=== PATIENT | female | born 1965 ===

== ENCOUNTER 2024-07-17 09:27 | Emergency (ER) | payer OTHER, SELFPAY ==
[2024-07-17 09:31] VITALS: BP 172/95
--- NOTE | 2024-07-17 10:02 | ED.GENMED ---
History of Present Illness
General
Chief Complaint: Breathing Problem
Source: patient
Exam Limitations: none
Time Seen by Provider: 07/17/24 09:36
History of Present Illness
History of Present Illness:
59-year-old female complaining of ongoing cough some shortness of breath for over a month. Had a chest x-ray a month ago that was unremarkable. Has been on 2 courses of antibiotics. Finishing azithromycin now. Was on steroids earlier. Also
using an albuterol inhaler. No hemoptysis no chest pain or pleuritic pain. No one else is ill at home. Symptoms are not progressing but they are not improving.
Past History
Past History
ED Past Medical History: Other
ED Past Surgical History: Cholecystectomy and Orthopedic
Social History
Tobacco: Non-smoker
Personal:
Living: with family
Review of Systems
Review of Systems
All Other Systems: Not applicable
Constitutional: Denies fever
Respiratory: Denies hemoptysis
Cardiac: Reports no symptoms
Phy Exam
Physical Exam
Physical Exam:
GENERAL: Alert and oriented in no apparent distress
EYE: Orbits normal.
NECK: Supple
CARDIAC: Regular rate and rhythm without any obvious murmurs.
LUNGS: No respiratory distress. Occasional dry cough. Slightly distant breath sounds with end expiratory wheezing
ABDOMEN: Soft, without focal tenderness or distention
NEUROLOGICAL: Alert and oriented , grossly non-focal
SKIN: Warm and dry, no rash or lesion, no discoloration, skin intact.
MUSCULOSKELETAL: No edema,no deformity.Good color
PSYCH: Normal and appropriate interaction.
Scores
Heart Failure Risk
Heart Failure Risk Score: Not Applicable
Course
Orders/Labs/Results
Orders:
Orders
07/17/24 10:01
IV Insert/Care/Rem.- Treatment PRN
CR Chest - 2 Views Urgent
Comment:
Reason For Exam: Persistent cough
07/17/24 10:17
Basic Metabolic Panel Urgent
COVID-19 Antigen Urgent
Source: Nasal Swab
Complete Blood Count/With Diff Urgent
D-Dimer Urgent
Influenza A+B Rapid Molecular Urgent
LUI Source: Nasal Swab
Specimen Description:
Abnormal Lab Results
07/17/24
10:17
MCHC 32.1 L g/dL
(33.0-37.0)
MPV 10.8 H fL
(7.4-10.4)
Abs Immat Gran (auto) 0.1 H 10^3/uL
(0-0.05)
Absolute Lymphs (auto) 0.8 L 10^3/uL
(1.2-3.4)
Absolute Monos (auto) 0.7 H 10^3/uL
(0.1-0.6)
Absolute Eos (auto) 0.9 H 10^3/uL
(0-0.7)
Immature Gran % 0.6 H %
(0-0.5)
Lymphocytes % 9.8 L %
(20.5-51.1)
Eosinophils % 10.8 H %
(0-6)
Creatinine 0.5 L mg/dL
(0.6-1.0)
Glucose 101 H mg/dl
(70-99)
07/17/24 10:17
07/17/24 10:17
Vital Signs
Initial and Last Documented VS:
Initial Vital Signs
Temp Pulse Resp BP Pulse Ox
98.9 F 88 16 172/95 94
07/17/24 09:31 07/17/24 09:31 07/17/24 09:31 07/17/24 09:31 07/17/24 09:31
Last Documented Vital Signs
Temp Pulse Resp BP Pulse Ox
98.9 F 89 19 155/89 96
07/17/24 09:31 07/17/24 10:32 07/17/24 10:32 07/17/24 10:28 07/17/24 10:32
MDM/Problems Addressed
Differential Diagnosis Includes:
Most suspicious of a postinflammatory persistent bronchitis. Doubt pulmonary emboli but would be considered. D-dimer pending. Chest x-ray pending.
*Radiology
Radiology exam reviewed: radiology read reviewed (Negative)
*Pulse Oximetry
Patient hypoxic: no
*Critical Care Note
Total Time (30-74mins, 75-104mins- exclusive of procedures): Not Applicable
Update Note
Update Note:
Persistent bronchitis with some inflammatory expiratory wheezing. Feel another course of antibiotics is not warranted. Nothing to support a bacterial infection. Very low suspicion for PE with negative D-dimer. In no respiratory distress. Oral
steroids inhaled steroids and follow-up
ED Attending Note
-
Portions of this chart may have been created with voice recognition software.� Occasional wrong word or��sound alike� substitutions may have occurred due to the inherent limitations of voice recognition software.
Discharge Plan
Departure
Patient Disposition: Home (Routine Discharge)
Date of Disposition: 07/17/24
Time of Disposition: 12:10
Patient with high blood pressure during this ER visit?: Yes
Discharge Problem:
Persistent bronchitis
Instructions: Bronchitis in adults - ED discharge instructions, BLOOD PRESSURE
Prescriptions:
New
fluticasone propionate 110 mcg/actuation HFA aerosol inhaler
1 inh inhalation BID Qty: 12 0RF
prednisone 10 mg tablet
10 mg feeding tube DAILY Qty: 30 0RF
Rx Instructions:
4 tablets day 1. Then 1 less tablet every third day until gone
Referrals:
Rajan Galvez DO [Family Provider] - Follow up in 2-3 days
Sandro Michael MD [Active] - Next open appointment
Activity Restrictions/Additional Instructions:
I recommend following up with pulmonary at this point
Your prescriptions were sent to your pharmacy
Interventions
Interventions:
*Risk Screen - Suicide Last Done: 07/17/24 09:34
*Neglect/Abuse Screening Last Done: 07/17/24 09:34
ED- Fall Risk Assessment Last Done: 07/17/24 10:28
*ED COVID-19 Vaccine History Last Done: 07/17/24 09:34
Discharge Date and Time
Print Language: SENEGALESE
[2024-07-17 10:28] VITALS: BP 155/89; BMI 31.2
[2024-07-17 10:33] LABS: % Basophils 1.7 % (0-2); % Eosinophils 10.8 % (0-6); % Immature Granulocytes 0.6 % (0-0.5); % Lymphocytes 9.8 % (20.5-51.1); % Monocytes 8.4 % (1.7-9.3); % Neutrophils 68.7 % (42.2-75.2); Absolute Basophils 0.1 10^3/uL (0-0.2); Absolute Eosinophils 0.9 10^3/uL (0-0.7); Absolute Immature Granulocytes 0.1 10^3/uL (0-0.05); Absolute Lymphocytes 0.8 10^3/uL (1.2-3.4); Absolute Monocytes 0.7 10^3/uL (0.1-0.6); Absolute Neutrophils 5.5 10^3/uL (1.4-6.5); Hemoglobin 13.8 g/dL (12.0-16.0); Mean Corp Hgb Conc. 32.1 g/dL (33.0-37.0); Mean Corpuscular Hgb 28.5 pg (27.0-31.0); Mean Corpuscular Volume 88.8 fL (81.0-99.0); Mean Platelet Volume 10.8 fL (7.4-10.4); Nucleated Red Blood Cells % 0 %; Platelet Count 269 10^3/uL (130-400); Red Blood Cell Count 4.84 10^6/uL (4.20-5.40); Red Cell Dist. Width 14.1 % (11.5-14.5); White Blood Cell Count 8.1 10^3/uL (4.8-10.8)
[2024-07-17 10:44] LABS: Blood Urea Nitrogen 10 mg/dl (7-17); Calcium 9.5 mg/dl (8.4-10.2); Carbon Dioxide 29 mmol/L (22-30); Chloride 107 mmol/L (98-107); Estimated Creatinine Clearance 112 ml/min; Glucose 101 mg/dl (70-99); Potassium 3.7 mmol/L (3.5-5.1); Sodium 140 mmol/L (135-145); eGFR > 60.00
[2024-07-17 10:50] LABS: COVID-19 Antigen Negative (Negative)
[2024-07-17 10:58] LABS: D-Dimer < 0.27 ug/mlFEU (0.00-0.50)
[2024-07-17 11:01] VITALS: BP 160/90
[2024-07-17 12:00] VITALS: BP 175/89
== END 2024-07-17 12:45 | disposition home or self-care (01) ==
LOC: EMR 09:27
PROVIDERS: EMERGENCY PHYSICIAN Emergency Medicine; FAMILY PHYSICIAN Internal Medicine
DX: J40 Bronchitis, not specified as acute or chronic (principal); Z11.52 Encounter for screening for COVID-19; Z90.49 Acquired absence of other specified parts of digestive tract
CPT/HCPCS: 99284; 71046; 80048; 85025; 85379; 87502; 87811

== ENCOUNTER 2024-08-07 21:35 | Emergency (ER) | payer OTHER, SELFPAY ==
[2024-08-07 21:50] VITALS: BP 154/84
[2024-08-07] MEDS: DELTASONE 50 MG PO (22:34)
--- NOTE | 2024-08-07 23:00 | ED.GENMED ---
History of Present Illness
General
Chief Complaint: Skin Problem
Source: patient and spouse
Time Seen by Provider: 08/07/24 22:14
History of Present Illness
History of Present Illness:
59-year-old female presents with itching hands. The patient states that she awoke this morning and her hands were itchy. She took Benadryl which made her go to sleep and she was able to sleep. Subsequently however she states she woke up and her
hands were itchy all over again. She states she has sort of random other spots where she itches but for the most part just her hands. She denies a rash however. No intraoral lesions. No lip lesions. No redness. No bumps. No vesicles. Patient
does admit she is finishing Bactrim for a foot ulcer that is being closely monitored. Patient's states that they did just picked her 2 dogs up from the groomer prior to this starting.
Past History
Past History
ED Past Medical History: Other (Multiple sclerosis, foot ulcer)
ED Past Surgical History: Cholecystectomy and Orthopedic
Social History
Tobacco: Non-smoker
Personal:
Living: with family
Phy Exam
Physical Exam
Physical Exam:
CONSTITUTIONAL Vital signs reviewed, Patient alert and oriented to person, place and time. Well-appearing
HEAD atraumatic, normocephalic.
EYES eyelids normal to inspection, Extraocular muscles intact, Conjunctiva normal, Sclera normal.
NECK normal range of motion, Trachea midline, no jugular venous distention.
RESP no respiratory distress
BACK No obvious deformities
UPPER EXTREMITY Gross Range of motion normal, gross motor strength normal
LOWER EXTREMITY Gross range of motion normal, Gross motor strength normal. Also evaluated a left plantar surface below the MTP joint that is well-demarcated and not red in any way. It is shallow without drainage. Appears to be healing
appropriately
NEURO Speech normal, No focal motor deficits include, Manuel coma scale 15, Memory normal, Cranial Nerves intact to screening exam.
SKIN Skin warm, dry, and normal in color. No noted rash. No vesicles. No papules. No redness. Hands normal. No intraoral lesions. Lips normal
PSYCHIATRIC Patient oriented to person place and time, Normal affect.
Course
Orders/Labs/Results
Orders:
Orders
08/07/24 22:30
Prednisone [Deltasone] 50 mg PO NOW STA
Vital Signs
Initial and Last Documented VS:
Initial Vital Signs
Temp Pulse Resp BP Pulse Ox
98.7 F 70 18 154/84 94
08/07/24 21:50 08/07/24 21:50 08/07/24 21:50 08/07/24 21:50 08/07/24 21:50
Last Documented Vital Signs
Temp Pulse Resp BP Pulse Ox
98.7 F 70 18 154/84 94
08/07/24 21:50 08/07/24 21:50 08/07/24 21:50 08/07/24 21:50 08/07/24 21:50
MDM/Problems Addressed
Differential Diagnosis Includes:
Villarreal-Juan Carlos syndrome, drug rash, contact dermatitis, viral rash
MDM/Problems Addressed:
Chronic foot ulcer, suspected contact dermatitis
*Pulse Oximetry
Patient hypoxic: no
*Critical Care Note
Total Time (30-74mins, 75-104mins- exclusive of procedures): Not Applicable
Data Reviewed
Source: patient and family
Prescriptions/Medications Considered But Not Given:
Considered IV steroids but oral steroids will suffice as there is no rash
Patient Management
Escalation/DeEscalation of care consider admission/obs:
Will give one-time dose of steroids for symptom control. Continue antihistamines. I wonder whether this is related to something that was put on the dogs at the [facility] given the fact that it started shortly after that and is mostly on her hands.
The patient otherwise appears well. Also considered whether this could be a reaction to Bactrim but there is no oral lesions and there is no drug rash. In fact there is no rash at all. Recommended antihistamines and also recommended that they
rinse off the dogs
ED Attending Note
-
Portions of this chart may have been created with voice recognition software.� Occasional wrong word or��sound alike� substitutions may have occurred due to the inherent limitations of voice recognition software.
Discharge Plan
Departure
Patient Disposition: Home (Routine Discharge)
Date of Disposition: 08/07/24
Time of Disposition: 23:03
Patient with high blood pressure during this ER visit?: Yes
Discharge Problem:
Suspected contact dermatitis, Chronic foot ulcer
Instructions: Contact dermatitis, Wound Care (DC), BLOOD PRESSURE
Prescriptions:
No Action
fluticasone propionate 110 mcg/actuation HFA aerosol inhaler
1 inh inhalation BID Qty: 12 0RF
prednisone 10 mg tablet
10 mg feeding tube DAILY Qty: 30 0RF
Rx Instructions:
4 tablets day 1. Then 1 less tablet every third day until gone
Activity Restrictions/Additional Instructions:
Return immediately for rash of any kind, ulcerations in the mouth, blistering of the lips, blistering of the skin, swelling of the tongue or lips, shortness of breath or any other concerns. If you do develop any of the symptoms, please stop your
antibiotic immediately. See your doctor in the next 3 to 5 days if any symptoms persist.
Interventions
Interventions:
*Risk Screen - Suicide Last Done: 08/07/24 21:50
*Neglect/Abuse Screening Last Done: 08/07/24 21:50
ED-Skin Assessment Last Done: 08/07/24 22:52
Discharge Date and Time
Print Language: UPPER SORBIAN
== END 2024-08-07 23:21 | disposition home or self-care (01) ==
LOC: EMR 21:35
PROVIDERS: EMERGENCY PHYSICIAN Emergency Medicine; FAMILY PHYSICIAN Internal Medicine
DX: L29.9 Pruritus, unspecified (principal); L97.509 Non-pressure chronic ulcer of other part of unspecified foot with unspecified severity; G35 Multiple sclerosis; Z90.49 Acquired absence of other specified parts of digestive tract
CPT/HCPCS: 99282

== ENCOUNTER 2024-09-13 12:01 | Emergency (ER) | payer OTHER, SELFPAY ==
[2024-09-13 12:10] VITALS: BP 144/87
[2024-09-13 12:39] LABS: % Basophils 0.3 % (0-2); % Eosinophils 0.1 % (0-6); % Immature Granulocytes 0.5 % (0-0.5); % Monocytes 5.9 % (1.7-9.3); % Neutrophils 88.2 % (42.2-75.2); Absolute Immature Granulocytes 0.1 10^3/uL (0-0.05); Absolute Lymphocytes 0.6 10^3/uL (1.2-3.4); Absolute Monocytes 0.7 10^3/uL (0.1-0.6); Absolute Neutrophils 10.4 10^3/uL (1.4-6.5); Hematocrit 41.8 % (37.0-47.0); Hemoglobin 13.8 g/dL (12.0-16.0); Mean Corpuscular Hgb 28.7 pg (27.0-31.0); Mean Corpuscular Volume 86.9 fL (81.0-99.0); Mean Platelet Volume 11.1 fL (7.4-10.4); Nucleated Red Blood Cells % 0 %; Platelet Count 277 10^3/uL (130-400); Red Blood Cell Count 4.81 10^6/uL (4.20-5.40); Red Cell Dist. Width 13.9 % (11.5-14.5); White Blood Cell Count 11.8 10^3/uL (4.8-10.8)
[2024-09-13 12:51] LABS: ALT (SGPT) 20 U/L (0-35); AST (SGOT) 19 U/L (14-36); Alkaline Phosphatase 85 U/L (38-126); Blood Urea Nitrogen 12 mg/dl (7-17); Calcium 9.9 mg/dl (8.4-10.2); Carbon Dioxide 25 mmol/L (22-30); Chloride 105 mmol/L (98-107); Glucose 122 mg/dl (70-99); Potassium 4.1 mmol/L (3.5-5.1); Sodium 138 mmol/L (135-145); Total Bilirubin 0.7 mg/dl (0.2-1.3); Total Protein 6.5 g/dl (6.3-8.2); eGFR > 60.00
[2024-09-13 13:13] LABS: COVID-19 Antigen Negative (Negative)
--- NOTE | 2024-09-13 14:34 | ED.GENMED ---
History of Present Illness
General
Chief Complaint: Cough
Source: patient
Time Seen by Provider: 09/13/24 14:15
History of Present Illness
History of Present Illness:
59-year-old female presents to the emergency room complaining of persistent cough and now has pain on the right side of his chest with coughing. No short of breath. No fever or chills. Patient was recently seen by her director of group counseling program and she was
started on albuterol MDI as well as a taper of steroids. She feels that her cough is less prominent since starting the meds but she does have pain when she coughs. She does not feel particularly short of breath. Her activity is not limited by
shortness of breath though she feels like she is walking more slowly because of the pain in her chest.
Past History
Past History
ED Past Medical History: Other (Multiple sclerosis, foot ulcer)
ED Past Surgical History: Cholecystectomy and Orthopedic
Social History
Tobacco: Non-smoker
Personal:
Living: with family
Phy Exam
Physical Exam
Physical Exam:
General: Awake, Alert, Oriented X3. No acute distress.
Vitals: unremarkable
Head: Atraumatic
Eyes: Pupils equal, EOMI
Throat: Airway intact, no exudates
Neck: Trachea midline
Lungs: Few expiratory wheezes
Heart: Regular rate, no murmurs
Abd: Soft, Nontender, No pulsatile mass
Neuro: Nonfocal
Skin: Warm, dry, no rash
Extremities: pulses equal b/l, no edema
Course
Orders/Labs/Results
Orders:
Orders
09/13/24 12:13
CR Chest - 2 Views Urgent
Comment:
Reason For Exam: sob, cough
09/13/24 12:23
COVID-19 Antigen Urgent
Source: Nasal Swab
Complete Blood Count/With Diff Urgent
Comprehensive Metabolic Panel Urgent
NT-proBNP Urgent
Comment: ADD ON
Influenza A+B Rapid Molecular Urgent
LUI Source: Nasal Swab
Specimen Description:
09/13/24 14:32
Ibuprofen [Motrin] 400 mg PO NOW STA
09/13/24 15:29
Add On- LAB Urgent
Tests Added?: bnp
Abnormal Lab Results
09/13/24
12:23
WBC 11.8 H 10^3/uL
(4.8-10.8)
MPV 11.1 H fL
(7.4-10.4)
Abs Immat Gran (auto) 0.1 H 10^3/uL
(0-0.05)
Absolute Neuts (auto) 10.4 H 10^3/uL
(1.4-6.5)
Absolute Lymphs (auto) 0.6 L 10^3/uL
(1.2-3.4)
Absolute Monos (auto) 0.7 H 10^3/uL
(0.1-0.6)
Neutrophils % 88.2 H %
(42.2-75.2)
Lymphocytes % 5.0 L %
(20.5-51.1)
Creatinine 0.5 L mg/dL
(0.6-1.0)
Glucose 122 H mg/dl
(70-99)
09/13/24 12:23
09/13/24 12:23
Vital Signs
Initial and Last Documented VS:
Initial Vital Signs
Temp Pulse Resp BP Pulse Ox
99.4 F 78 18 144/87 95
09/13/24 12:10 09/13/24 12:10 09/13/24 12:10 09/13/24 12:10 09/13/24 12:10
Last Documented Vital Signs
Temp Pulse Resp BP Pulse Ox
98.5 F 86 20 143/81 96
09/13/24 15:29 09/13/24 15:29 09/13/24 15:29 09/13/24 15:29 09/13/24 15:29
MDM/Problems Addressed
Differential Diagnosis Includes:
Pneumonia, chest wall pain from coughing, spontaneous pneumothorax
MDM/Problems Addressed:
Patient presents with a chronic cough and right-sided chest pain. Vital signs are normal here. She is afebrile. Workup shows a minimally elevated white blood cell count. Patient is on steroids of note. Chemistries are essentially unremarkable.
Chest x-ray shows small bilateral pleural effusions. COVID and flu test are negative. Patient will require additional testing to identify the source of her pleural effusions. Her BNP here is normal and clinically she does not appear to be in
heart failure. Also given her contact information to follow-up with cardiology. I did discuss the patient's abnormal chest x-ray with Dr. Michael who is on-call for pulmonary.
*Radiology
Radiology exam reviewed: radiology read reviewed
*Pulse Oximetry
Patient hypoxic: no
*Critical Care Note
Total Time (30-74mins, 75-104mins- exclusive of procedures): Not Applicable
ED Attending Note
-
Portions of this chart may have been created with voice recognition software.� Occasional wrong word or��sound alike� substitutions may have occurred due to the inherent limitations of voice recognition software.
Discharge Plan
Departure
Patient Disposition: Home (Routine Discharge)
Date of Disposition: 09/13/24
Time of Disposition: 17:16
Patient with high blood pressure during this ER visit?: Yes
Condition: Good
Discharge Problem:
Chest wall pain, Pleural effusion, bilateral
Instructions: Pleural effusion, BLOOD PRESSURE
Prescriptions:
No Action
fluticasone propionate 110 mcg/actuation HFA aerosol inhaler
1 inh inhalation BID Qty: 12 0RF
prednisone 10 mg tablet
10 mg feeding tube DAILY Qty: 30 0RF
Rx Instructions:
4 tablets day 1. Then 1 less tablet every third day until gone
Referrals:
Rajan Galvez, [Family Provider] -
Chilango Maciel MD [Active] -
Interventions
Interventions:
*Risk Screen - Suicide Last Done: 09/13/24 12:13
*General Assessment Last Done: 09/13/24 12:13
*Neglect/Abuse Screening Last Done: 09/13/24 12:13
*ED- Fall Risk Assessment Last Done: 09/13/24 15:29
*ED COVID-19 Vaccine History Last Done: 09/13/24 12:13
*Nursing Disposition Last Done: 09/13/24 17:31
ED- Pulmonary Assessment Last Done: 09/13/24 15:29
Discharge Date and Time
Discharge Date/Time: 09/13/24 17:34
Print Language: VIET[place]ESE
[2024-09-13 15:29] VITALS: BP 143/81; BMI 28.3
[2024-09-13] MEDS: MOTRIN 400 MG PO (15:36)
[2024-09-13 16:30] LABS: NT-proBNP 141 pg/ml
== END 2024-09-13 17:34 | disposition home or self-care (01) ==
LOC: EMR 12:01
PROVIDERS: Emergency Medicine; EMERGENCY PHYSICIAN Emergency Medicine; FAMILY PHYSICIAN Internal Medicine
DX: R07.89 Other chest pain (principal); J90 Pleural effusion, not elsewhere classified; G35 Multiple sclerosis; Z90.49 Acquired absence of other specified parts of digestive tract; Z11.52 Encounter for screening for COVID-19
CPT/HCPCS: 99284; 71046; 80053; 83880; 85025; 87502; 87811

== ENCOUNTER → 2024-10-29 09:56 | Outpatient (REF) | payer OTHER, SELFPAY | LOC: HWRAD 09:56 | PROVIDERS: ATTENDING PHYSICIAN Internal Medicine Critical Care Medicine; FAMILY PHYSICIAN Internal Medicine | DX: J90 Pleural effusion, not elsewhere classified (principal) | CPT/HCPCS: 71046 ==